=== PATIENT | female | born 1980 | race Caucasian/White ===

== ENCOUNTER 2021-09-09 08:29 | Outpatient (CLI) | payer OTHER, BC, SELFPAY ==
--- NOTE | 2021-09-09 08:45 | MM_ITS ---
Final Report Patient: MARY ALEXANDER Facility:?[facility] Patient ID:?[id number] :?1980 Study:?XRay Breast Bilateral 3D Diagnostic w/ cad-09/09/2021 9:29:42 AM Ordering Physician:Manuela Mathias Final Report: DIAGNOSTIC RIGHT AND SCREENING LEFT MAMMOGRAM WITH COMPUTER-AIDED DETECTION AND TOMOSYNTHESIS RIGHT AXILLA ULTRASOUND INDICATION: RIGHT axillary swelling during periods. TECHNIQUE: DIAGNOSTIC RIGHT and screening LEFT mammograms with tomosynthesis. Computer-aided detection was utilized. COMPARISON FILM: None available. BREAST COMPOSITION: The breasts are extremely dense, which lowers the sensitivity of mammography FINDINGS: No mass, suspicious microcalcifications, architectural distortion, or other evidence of malignancy. Targeted RIGHT breast ultrasound in the RIGHT axilla is unremarkable. No mass or lymphadenopathy. IMPRESSION: 1. No mammographic evidence of malignancy. 2. Negative targeted RIGHT axillary ultrasound. BI-RADS Category 1: Negative Jairo Williamson M.D. Diagnostic/Musculoskeletal Radiologist [email or web address] MC/adelaida D& Transcribed: 10:24 a.m. PT/Dictated by: Jairo Williamson MD @ 09/09/2021 10:00:00 AM (Electronic Signature)
--- NOTE | 2021-09-09 09:20 | US_ITS ---
Final Report Patient: MARY ALEXANDER Facility:?[facility] Patient ID:?[id number] :?1980 Study:?US Breast Right AXILLA-09/09/2021 9:41:34 AM Ordering Physician:?Winter Mathias Final Report: RIGHT AXILLA ULTRASOUND PLEASE SEE DIAGNOSTIC RIGHT AND SCREENING LEFT MAMMOGRAM SAME DAY CRL:adelaida PT/Dictated by: Jairo Williamson MD @ 09/09/2021 10:02:00 AM (Electronic Signature)
== END 2021-09-09 08:30 | disposition home or self-care (01) ==
PROVIDERS: PCP Family Medicine; Visit Provider Registered Nurse
DX: N61.0 Mastitis without abscess (principal)
CPT/HCPCS: 76642; 77066; G0279

== ENCOUNTER 2022-11-11 13:05 | Outpatient (CLI) | payer OTHER, BC, SELFPAY ==
--- NOTE | 2022-11-11 13:20 | CRLHL7_ITS ---
For Patients: As a result of the Cures Act, medical imaging exams and procedure reports are released immediately into your electronic medical record. You may view this report before your referring provider. If you have questions, please contact your health care provider. BILATERAL SCREENING MAMMOGRAM WITH COMPUTER-AIDED DETECTION AND TOMOSYNTHESIS TECHNIQUE: CC and MLO views were obtained. These mammographic images have been obtained using full-field digital technique. These mammographic images were interpreted with the benefit of computer-aided detection. Breast Tomosynthesis was used in this interpretation. COMPARISON FILM: 09/09/2021. FINDINGS: The breasts are heterogeneously dense, which may obscure small masses IMPRESSION: There is no radiographic evidence for malignancy. ASSESSMENT: BI-RADS Category 1: Negative RECOMMENDATION: Routine screening mammogram in 1 year. A lay language report of this examination will be provided to the patient. Al Johnson M.D. Diagnostic Radiologist [email or web address] GINI/isabel / be/Dictated by: Al Johnson MD @ 11/12/2022 11:52:00 AM (Electronically Signed)
== END 2022-11-11 13:06 | disposition home or self-care (01) ==
LOC: MAMMO 13:07
PROVIDERS: PCP Family Medicine; Visit Provider Family Medicine
DX: Z12.31 Encounter for screening mammogram for malignant neoplasm of breast (principal); R92.2 Inconclusive mammogram
CPT/HCPCS: 77063; 77067